=== PATIENT | male | born 1990 | race Asian ===

== ENCOUNTER 2023-08-27 18:58 | Emergency (ER) | payer OTHER ==
[2023-08-27] MEDS: Lidocaine 1% PF 2 ML SDV INJECT ONE (19:27)
== END 2023-08-27 19:52 | disposition home or self-care (01) ==
LOC: MW.ED 18:58
DX: S01.81XA Laceration without foreign body of other part of head, initial encounter (principal); W20.8XXA Other cause of strike by thrown, projected or falling object, initial encounter
CPT/HCPCS: 12011; 99282; 99283; J3490

== ENCOUNTER 2024-06-07 21:40 | Emergency (ER) | payer BC, OTHER ==
[2024-06-07] MEDS ORDERED: Sodium Chloride 0.9% 10 ML Syringe FLUSH PRN (22:28)
[2024-06-07] MEDS: Acetaminophen 500 MG Tab PO ONE (22:41)
[2024-06-07] MEDS: Sodium Chloride 0.9% 1,000 ML IV ONE (22:41)
[2024-06-07 22:55] LABS: BASOPHILS ABSOLUTE AUTO 0.05 K/uL (0.00-0.20); BASOPHILS PERCENT AUTO 0.6 % (0.0-1.0); EOSINOPHILS PERCENT AUTO 4.4 % (0.0-6.0); HEMATOCRIT 40.7 % (42.0-52.0); IMMATURE GRAN ABSOLUTE AUTO 0.03 K/uL (0.00-0.05); IMMATURE GRAN PERCENT AUTO 0.3 % (0.0-0.4); LYMPHOCYTES ABSOLUTE AUTO 1.91 K/uL (1.00-4.80); LYMPHOCYTES PERCENT AUTO 21.1 % (24.0-44.0); MEAN CORPUSCULAR HEMOGLOBIN 25.5 pg (28.0-32.0); MEAN CORPUSCULAR HGB CONC 31.9 g/dL (32.0-36.0); MEAN PLATELET VOLUME 9.3 fL (9.4-12.4); MONOCYTES ABSOLUTE AUTO 0.71 K/uL (0.00-0.80); MONOCYTES PERCENT AUTO 7.9 % (0.0-8.0); NEUTROPHILS ABSOLUTE AUTO 5.94 K/uL (1.80-7.70); NEUTROPHILS PERCENT AUTO 65.7 % (41.0-71.0); PLATELET COUNT,PLT 388 K/uL (150-400); RED BLOOD CELL COUNT 5.09 M/uL (4.52-5.90); WHITE BLOOD CELL COUNT,WBC 9.04 K/uL (3.9-11.3)
[2024-06-07] MEDS: Prochlorperazine 10 MG/2 ML SDV IVPUSH ONE (23:12)
[2024-06-07] MEDS: diphenhydrAMINE 50 MG/ML SDV IVPUSH ONE (23:13)
[2024-06-07 23:24] LABS: A/G RATIO 0.7 (0.9-1.6); ALBUMIN 3.6 g/dL (3.4-5.0); BILIRUBIN TOTAL 0.5 mg/dL (0.2-1.0); C-REACTIVE PROTEIN 2.59 mg/dL (<0.3); CALCIUM 9.4 mg/dL (8.5-10.1); CARBON DIOXIDE,CO2 29.4 mmol/L (21.0-32.0); CREATININE 0.9 mg/dL (0.8-1.3); EST CRCL DRUG DOSING (CG) 109.15 mL/min; MAGNESIUM 2.2 mg/dL (1.8-2.4); POTASSIUM,K 4.3 mmol/L (3.5-5.1); PROTEIN TOTAL,TP 8.5 g/dL (6.4-8.2)
[2024-06-08] MEDS: Ketorolac 30 MG/ML SDV IVPUSH ONE (00:34)
[2024-06-08] MEDS: Dexamethasone 4 MG/ML SDV IVPUSH ONE (00:48)
== END 2024-06-08 01:01 | disposition home or self-care (01) ==
LOC: MW.ED 21:40
DX: J39.8 Other specified diseases of upper respiratory tract (principal); G43.909 Migraine, unspecified, not intractable, without status migrainosus; B97.89 Other viral agents as the cause of diseases classified elsewhere; J45.909 Unspecified asthma, uncomplicated
CPT/HCPCS: 36415; 71045; 80053; 83735; 85025; 85652; 86140; 87428; 96361; 96374; 96375; 99283; A9270; J0780; J1100; J1200; J1885; J7030

== ENCOUNTER 2025-02-09 07:17 | Day surgery (SDC) | payer BC, OTHER ==
[~2025-02-09 07:17] MED LIST: Sodium Chloride 0.9% 10 ML Syringe FLUSH PRN; Sodium Chloride 0.9% 2.5 ML Syringe FLUSH PRN; ceFAZolin 2 GM in Water For Injection, Sterile 20 ML IVPUSH ONE
[2025-02-09] MEDS ORDERED: Ondansetron 4 MG/2 ML SDV ONE (07:25)
[2025-02-09] MEDS ORDERED: dexmedeTOMIDine HCl 200 MCG/2 ML SDV ONE (07:25)
[2025-02-09] MEDS ORDERED: Dexamethasone 4 MG/ML 5 ML MDV ONE (07:25)
[2025-02-09] MEDS ORDERED: Propofol 200 MG/20 ML SDV ONE (07:26)
[2025-02-09] MEDS ORDERED: Ropivacaine 0.5% 5 MG/ML 30 ML SDV ONE (07:26)
[2025-02-09] MEDS ORDERED: fentaNYL 250 MCG/5 ML SDV ONE (07:26)
[2025-02-09] MEDS: Scopalamine 1mg/3day Transdermal Patch TOP ONE (07:40)
[2025-02-09] MEDS: Lactated Ringers 1,000 ML IV SCH (07:40)
[2025-02-09] MEDS ORDERED: Scopalamine 1mg/3day Transdermal Patch ONE (07:42)
[2025-02-09] MEDS ORDERED: Naloxone 0.4 MG/ML SDV IVPUSH PRN (08:00)
[2025-02-09] MEDS ORDERED: Albuterol 0.083% 2.5 MG/3 ML Neb Soln NEB PRN (08:00)
[2025-02-09] MEDS ORDERED: fentaNYL 50 MCG/ML SDV IVPUSH PRN (08:00)
[2025-02-09] MEDS ORDERED: Indocyanine Green 25 MG SDV ONE (08:40)
[2025-02-09] MEDS: Ketorolac 30 MG/ML SDV IVPUSH ONE (11:10)
[2025-02-09] MEDS: Ondansetron 4 MG/2 ML SDV IVPUSH PRN (13:10)
== END 2025-02-09 13:43 | disposition home or self-care (01) ==
LOC: MW.SDS 07:17
PROVIDERS: ATTEND Surgery
DX: K80.10 Calculus of gallbladder with chronic cholecystitis without obstruction (principal); I48.91 Unspecified atrial fibrillation; K66.0 Peritoneal adhesions (postprocedural) (postinfection); Z79.899 Other long term (current) drug therapy
CPT/HCPCS: 47562; 64488; A9270; J0665; J0690; J1100; J1171; J1885; J2003; J2405; J2704; J2795; J3010; J7120; 00790; J3490